=== PATIENT | male | born 1990 | race Caucasian/White ===

== ENCOUNTER 2020-05-15 12:49 | Emergency (ER) | payer OTHER, SELFPAY ==
[2020-05-15 13:02] VITALS: BP 105/82; PULSE 110; RESP 18; TEMP 37.3; O2SAT 97; BMI 26.2
--- NOTE | 2020-05-15 13:40 | PC.NURSE ---
A&OX3, SPEAKS IN FULL SENTENCES, DENIES DIFFICULTY BREATHING, AWAITING EXAM
[2020-05-15] MEDS: Loratadine 10 MG TABLET PO (14:03)
[2020-05-15] MEDS: Famotidine 20 MG TABLET PO (14:03)
[2020-05-15] MEDS: predniSONE 20 MG TABLET 60 MG PO (14:03)
--- NOTE | 2020-05-15 14:11 | ED_ITS ---
HPI - Allergic Reaction General Chief complaint: Allergic Reaction Stated complaint: allergic reaction,hives Time Seen by Provider: 05/15/20 13:57 History of Present Illness HPI narrative: Patient complains of hives coming and going for several days as well as some lower lip swelling, it did improve after he went to urgent care several days ago and was given prednisone and antihistamine and started to get better, but now the hives are back, no shortness of breath no difficulty breathi ng no swelling in the throat the tongue or inside the mouth Related Data Previous Rx's Medication Instructions Recorded cetirizine 10 mg PO DAILY PRN #14 cap 05/15/20 diphenhydramine HCl [Benadryl] 50 mg PO BEDTIME PRN #20 cap 05/15/20 famotidine [Pepcid] 20 mg PO BID PRN #30 tab 05/15/20 prednisone 10 mg PO DAILY 8 Days #8 tab 05/15/20 Allergies Allergy/AdvReac Type Severity Reaction Status Date / Time No Known Allergies Allergy Verified 05/15/20 13:04 Review of Systems Review of Systems: Positive for ordered Sophia a rash and lower lip swelling No dizziness no weakness no confusion no fainting no shortness of breath no difficulty breathing no swelling of the tongue or the throat, no chest pain no abdominal pain no vomiting Yes all other systems are reviewed and are negative PMFSH Past Medical History Source: nursing notes reviewed Social History Social History Advance Directives: No Advance Directives Information Provided: Yes Physical Exam Vital Signs: Vital Signs: Last Vital Signs Temp 99.1 F 05/15/20 13:02 Pulse 110 H 05/15/20 13:02 Resp 18 05/15/20 13:02 BP 105/82 05/15/20 13:02 Pulse Ox 97 05/15/20 13:02 Body Mass Index 26.2 Patient is comfortable relaxed and cooperative no acute distress, A&O x3 There is some swelling of the lower lip but it is a not impair breathing or swal lowing The pharynx is clear with no swelling of tongue or pharynx, well-hydrated, voice is normal, lip is breathing easily and swallowing easily The neck is supple without lymphadenopathy The chest is clear to auscultation with full symmetric equal breath sounds bilaterally The heart rate and rhythm regular no murmur Abdomen no tender The skin there is diffuse ordered cardial rash, no evidence of cellulitis or ulceration Neuro no focal deficit Course Course Course Narrative: Comfortable patient in no distress is treated for ordered Sophia a with a longer tapering caught course of steroids and antihistamine and Pepcid Discharge Plan Discharge Clinical Impression: Urticaria Patient Disposition: Home, Self-Care Additional Instructions: We are treating for probable allergic reaction causing hives There was no sign of any dangerous condition at this time Return any time any worse condition or any concerns Follow with primary doctor The correct prednisone prescription was a tapering dose of prednisone for 8 days total with 60 mg for 2 days followed by 40 for 2 days followed by 20 mg for 2 days followed by 10 mg for 2 days Prescriptions: New cetirizine 10 mg capsule 10 mg PO DAILY PRN (Reason: allergy symptoms) Qty: 14 RF: 0 diphenhydramine HCl [Benadryl] 25 mg capsule 50 mg PO BEDTIME PRN (Reason: allergy symptoms) Qty: 20 RF: 0 famotidine [Pepcid] 20 mg tablet 20 mg PO BID PRN (Reason: As needed for allergy symptoms) Qty: 30 RF: 0 prednisone 10 mg tablet 10 mg PO DAILY 8 Days Qty: 8 RF: 0 Interventions: ED Discharge Assessment Last Done: 05/15/20 14:32 Discharge Date/Time: 05/15/20 14:32
== END 2020-05-15 14:32 | disposition home or self-care (01) ==
PROVIDERS: Emergency Provider Emergency Medicine; PCP Internal Medicine
DX: L50.9 Urticaria, unspecified (principal)
CPT/HCPCS: 99283

== ENCOUNTER 2020-07-15 09:14 | Outpatient (REF) | payer OTHER, SELFPAY ==
[2020-07-15 11:04] LABS: MANUAL DIFF FLAG NO
[2020-07-15 11:21] LABS: Basophils Percent Auto 0.5 % (0-2); Eosinophils Absolute Auto 0.3 X10*3/uL (0.0-0.4); Eosinophils Percent Auto 4.7 % (0-4); Hematocrit 45.1 % (42-52); Hemoglobin 14.5 g/dl (14.0-18.0); Imm Gran Abs Auto 0.03 X10*3/uL (0.00-0.03); Imm Gran Pct Auto 0.5 % (0.0-0.4); Lymphocytes Absolute Auto 1.3 X10*3/uL (1.2-4.9); Lymphocytes Percent Auto 20.3 % (20-40); Mean Corpuscular HGB Conc 32.2 g/dl (31.0-36.0); Mean Corpuscular Hemoglobin 30.7 pg (27.0-33.0); Mean Corpuscular Volume 95.3 fL (80-98); Mean Platelet Volume 11.2 fL (9.4-12.4); Monocytes Absolute Auto 0.4 X10*3/uL (0.1-1.2); Monocytes Percent Auto 5.5 % (2-11); Neutrophils Absolute Auto 4.5 X10*3/uL (2.0-8.3); Neutrophils Percent Auto 68.5 % (45-73); Platelet Count 184 X10*3/uL (160-400); Red Blood Count 4.73 X10*6/uL (4.60-5.80); Red Cell Distribution Width 12.1 % (11.0-16.0); White Blood Count 6.6 X10*3/uL (4.8-10.8)
[2020-07-15 12:05] LABS: Alanine Aminotransferase 10 U/L (0-40); Albumin Level 4.3 g/dL (3.5-5.0); Alkaline Phosphatase 111 U/L (39-117); Anion Gap 11 (12-20); Aspartate Amino Transferase 15 U/L (5-37); Blood Urea Nitrogen 10 mg/dL (9-16); C Reactive Protein 0.28 mg/dL (< or = 0.50); Carbon Dioxide 29 mmol/L (22-29); Chloride 103 mmol/L (96-108); Cholesterol 134 mg/dL; Estimated Glomerular Filt Rate > 60; Glucose Fasting 94 mg/dL (60-99); HDL Cholesterol 31 mg/dL; LDL Cholesterol Calculated 90 mg/dl; Sodium 139 mmol/L (135-145); Total Protein 6.8 g/dL (6.5-8.0); Triglycerides 65 mg/dL
== END 2020-07-15 09:15 | disposition home or self-care (01) ==
LOC: HO.HMGCLDS 09:14
PROVIDERS: PCP Internal Medicine; Visit Provider Internal Medicine
DX: Z00.01 Encounter for general adult medical examination with abnormal findings (principal); L50.1 Idiopathic urticaria
CPT/HCPCS: 36415; 80053; 80061; 85025; 86140

== ENCOUNTER 2022-06-15 08:57 | Outpatient (REF) | payer OTHER, SELFPAY ==
[2022-06-15 11:24] LABS: MANUAL DIFF FLAG NO
[2022-06-15 11:39] LABS: Basophils Absolute Auto 0.1 X10*3/uL (0.0-0.2); Basophils Percent Auto 0.8 % (0-2); Eosinophils Absolute Auto 0.4 X10*3/uL (0.0-0.4); Hematocrit 45.5 % (42.0-52.0); Hemoglobin 15.2 g/dl (14.0-18.0); Imm Gran Abs Auto 0.07 X10*3/uL (0.00-0.03); Imm Gran Pct Auto 0.8 % (0.0-0.4); Lymphocytes Absolute Auto 1.7 X10*3/uL (1.2-4.9); Lymphocytes Percent Auto 20.8 % (20-40); Mean Corpuscular HGB Conc 33.4 g/dl (31.0-36.0); Mean Corpuscular Hemoglobin 31.7 pg (27.0-33.0); Mean Platelet Volume 10.8 fL (9.4-12.4); Monocytes Absolute Auto 0.5 X10*3/uL (0.1-1.2); Monocytes Percent Auto 5.8 % (2-11); Neutrophils Absolute Auto 5.5 x10*3/uL (2.0-8.3); Neutrophils Percent Auto 66.8 % (45-73); Platelet Count 178 X10*3/uL (160-400); Red Blood Count 4.79 X10*6/uL (4.60-5.80); Red Cell Distribution Width 11.8 % (11.0-16.0); White Blood Count 8.3 X10*3/uL (4.8-10.8)
[2022-06-15 12:25] LABS: Alanine Aminotransferase 22 U/L (0-40); Albumin Level 3.9 g/dL (3.5-5.0); Alkaline Phosphatase 100 U/L (39-117); Aspartate Amino Transferase 21 U/L (5-37); Bilirubin Direct 0.3 mg/dL (0.0-0.5); Bilirubin Total 1.1 mg/dL (0.0-1.0); Cholesterol 131 mg/dL; Glucose Fasting 93 mg/dL (60-99); HDL Cholesterol 31 mg/dL; LDL Cholesterol Calculated 80 mg/dl; Total Protein 6.1 g/dL (6.5-8.0); Triglycerides 100 mg/dL
== END 2022-06-15 08:58 | disposition home or self-care (01) ==
LOC: HO.HMGCLDS 08:57
PROVIDERS: PCP Internal Medicine; Visit Provider Internal Medicine
DX: Z00.01 Encounter for general adult medical examination with abnormal findings (principal); L50.1 Idiopathic urticaria; R17 Unspecified jaundice
CPT/HCPCS: 36415; 80061; 80076; 82947; 85025

== ENCOUNTER 2023-06-22 07:58 | Outpatient (AMB) | payer OTHER, SELFPAY ==
--- NOTE | 2023-06-22 08:10 | MHC.PC.OV ---
Vital Signs 06/22/23 08:12 Height 6 ft 2 in Weight 238 lb BMI 30.6 BP 110/60 Blood Pressure Location Lt brachial Position Sitting Pulse 78 Pulse Source Pulse Oximeter Pulse Oximetry (%) 99 Oxygen Delivery Method Room Air Intake Visit Reasons: PE Intake Note: Pt is here today for his PE Allergies No Known Allergies Allergy (Verified 06/22/23 08:24) Medication List - Last Reconciled 06/22/23 by Christina Lanza MD No Known Home Meds Tobacco use date assessed: 06/22/23 Dental Screening Dental Screen Date: 06/22/23 Did you have a dental visit in the last 12 months?: No Was dental information given to patient?: No HPI PE HPI Details 32-year-old male here today for his physical exam. He has been feeling well, no complaints at present time. He has had his COVID vaccines in the past but has not yet had a booster, did not get his flu shot for last year season and has not yet had his Tdap. [facility] Medical History Elevated bilirubin Encounter for general adult medical examination with abnormal findings Chronic idiopathic urticaria Surgical History No pertinent past surgical history Family History Maternal Grandfather Pancreatic cancer Social History Housing: House Alcohol intake: current Patient Tobacco Use Status: Never used Tobacco e-Cigarette/Vaping Use: Currently Using service: No Current occupational status: employed Cognitive needs: No Hearing needs: No Vision needs: No Questionnaire PHQ-9 Over the last 2 weeks, how often have you been bothered by any of the following problems? 1. Little interest or pleasure in doing things: not at all 2. Feeling down, depressed, or hopeless: not at all 3. Trouble falling or staying asleep, or sleeping too much: not at all 4. Feeling tired or having little energy: not at all 5. Poor appetite or overeating: not at all 6. Feeling bad about yourself - or that you are a failure or have let yourself or your family down: not at all 7. Trouble concentrating on things, such as reading the newspaper or watching television: not at all 8. Moving or speaking so slowly that other people could have noticed. Or the opposite - being so fidgety or restless that you have been moving around a lot more than usual: not at all 9. Thoughts that you would be better off or of hurting yourself in some way: not at all Total score: 0 Depression Screening Interpretation: Negative Depression Screening Done: Yes 41760 - PHQ-9 Billing: Yes Source: Developed by Drs. Misbah Llanes, Shivani Lomeli, Tahir Solis and colleagues, with an educational emilio from [employer]. Thrive Questionnaire Date Thrive assessed: 06/22/23 I am a: Patient What is your living situation today?: I have a steady place to live Within the past 12 months, did the food you bought not last and you didn't have the money to get more?: Never true Within the past 12 months, did you worry whether your food would run out before you got money to buy more?: Never true Do you have trouble paying for medicines?: No Do you have trouble getting transportation to medical appointments?: No Do you have trouble paying your heating and electricity bill?: No Do you have trouble taking care of your child, family member or friend?: No Do you have trouble with day-to-day activities such as bathing, preparing meals, shopping, managing finances, etc.?: No Are you currently unemployed and looking for a job?: No Are you interested in more education?: No THRIVE Score: 0 AUDIT C Alcohol Use Questionnaire (AUDIT-C) 1. How often do you have a drink containing alcohol?: Monthly or less 2. How many drinks containing alcohol do you have on a typical day when you are drinking?: 1 or 2 3. How often do you have six or more drinks on one occasion?: Never Total Score: 1 MADIHA-7 AMB Questionnaire MADIHA-7 Date MADIHA - 7 assessed: 06/22/23 Feeling nervous, anxious, or on edge: 0 = Not at all Not being able to stop or control worryin = Not at all Worrying too much about different things: 0 = Not at all Trouble relaxin = Not at all Being so restless that it is hard to sit still: 0 = Not at all Becoming easily annoyed or irritable: 0 = Not at all Feeling afraid as if something awful might happen: 0 = Not at all Total MADIHA-7 score (0-4 normal; 5-9 mild; 10-14 moderate; 15-21 severe): 0 Source: Developed by Drs. Misbah Llanes, Shivani Lomeli, Tahir Solis and colleagues, with an educational emilio from [employer]. MADIHA-7 Assessment Billing MADIHA-7 Assessment Tool: MADIHA-7 Assessment 45432 Review of Systems Const Denies anorexia, Denies body aches, Denies chills, Denies fatigue, Denies fever(s), Denies headache(s), Denies lethargy, Denies malaise and Denies weakness Eyes Denies change in vision, Denies eye discharge and Denies itchy eyes ENT Denies dizziness, Denies headache(s), Denies nasal congestion, Denies nasal discharge and Denies sore throat Card Denies chest pain, Denies lightheadedness, Denies palpitations and Denies dyspnea Resp Denies chest congestion, Denies cough, Denies dyspnea and Denies wheezing GI Denies abdominal pain, Denies change in bowel habits and Denies heartburn Denies dysuria, Denies urinary frequency and Denies urinary urgency Musc Reports as per HPI, Denies myalgias, Denies arthralgias and Denies muscle weakness Skin/Breast Reports as per HPI, Denies dry skin, Denies alopecia, Denies lesions, Denies nail changes, Denies new lesions, Denies rash, Denies sores and Denies unusual bruising Neuro Denies dizziness, Denies headache(s) and Denies weakness Psych Reports as per HPI Endo Denies fatigue, Denies polydipsia, Denies polyuria and Denies palpitations Lex/Lymph Denies easy bruising Aller/Immun Denies itchy eyes, Denies seasonal rhinorrhea and Denies wheezing Physical exam (Primary Care) Vital Signs: Last Vital Signs Pulse 78 06/22/23 08:12 BP 110/60 06/22/23 08:12 Pulse Ox 99 06/22/23 08:12 Oxygen Delivery Method Room Air 06/22/23 08:12 BMI result Body Mass Index 30.6 Tobacco/Smoking Status: Tobacco use Status Tobacco use date assessed 06/22/23 06/22/23 08:14 Patient Tobacco Use Status Never used Tobacco 06/22/23 08:11 e-Cigarette/Vaping Use Currently Using 06/22/23 08:14 PHQ-9: PHQ-9 Score PHQ-9: Total score 0 06/22/23 08:29 Depression Screening Interpretation: Negative Thrive Assessment: Date of Thrive Assessment Date Thrive assessed 06/22/23 06/22/23 08:14 Const General: no acute distress Nutritional Appearance: obese Orientation/consciousness: patient oriented x3 HENMT Head: Yes normocephalic and Yes atraumatic Ears: external ears normal, TM's normal bilaterally and Abnormal EAC present excessive cerumen bilateral General nose exam: Normal external nose present and No nasal discharge present Mouth: Normal oral and palatal mucosa present, oropharynx normal and moist mucous membranes Eyes General: appearance normal, both eyes and all related structures Neck Neck: Yes full ROM, Yes no lymphadenopathy and Yes supple Thyroid: Thyroid normal (Nonpalpable) Chest Chest palpation & inspection: normal inspection of the chest Resp Effort & Inspection: normal respiratory effort and able to speak in complete sentences Auscultation: clear to auscultation bilaterally Cardio Rate: regular rate Rhythm: regular rhythm Heart sounds: S1 normal heart sound present and S2 normal heart sound present Bruits: no abdominal aortic bruits GI Palpation (GI): No Abdominal aortic bruit present, Soft to palpation, nontender, no guarding and no masses Auscultation: normal bowel sounds General: Yes no CVA tenderness Male General Exam: Yes normal external exam Back/Spine/Pelvis Back: no CVA tenderness and No back tenderness Skin General skin exam: no rashes or lesions noted Neuro General: patient oriented x3, gait normal, tone normal, moves all extremities, Normal light touch and pain sensation and no focal motor deficits Cognition (Neuro): normal cognition Gait exam (Neuro): Normal gait present Motor exam (neuro): 5/5 motor strength present throughout Extrem General: Yes normal to inspection, Yes full ROM and Yes no joint enlargement Psych Appearance: grossly normal and well kempt Mental Status: mental status grossly normal Speech and movement: Normal speech and movement present Affect: normal affect Attitude: cooperative Thought process: Normal thought process present Thought content: Normal thought content present Office Procedures Flu Questionnaire Does the patient have a severe egg allergy?: No Does the patient have severe life threatening allergies?: No Does the patient have a fever or illness today?: No Has the patient ever had Guillain-[place] Syndrome?: No Has the patient ever had any past reaction to a flu shot?: No Immunizations flu vacc [id number] 6mos up(PF) 60 mcg(15 mcgx4)/0.5 mL IM syringe Performing Provider: Christina Lanza MD Performing Location: 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 Recommended dental visit every 6 months and regular eye exams, at least every 2 years. . Instructed to do self-testicular exam to check for any mass. Reinforced importance of following healthy diet and getting regular exercise at least 30 minutes of cardio 3 to 4 times a week. Had COVID vaccines in the past but not interested in getting the booster, flu vaccine given, patient states he had Tdap in the past, does not know when. (2) Elevated bilirubin: Code(s): R17 - Unspecified jaundice Plan: Will repeat liver panel Orders: Orders Liver Panel Today R17 - Unspecified jaundice, Z00.01 - Encounter for general adult medical examination with abnormal findings, Z13.1 - Encounter for screening for diabetes mellitus, Z13.220 - Encounter for screening for lipoid disorders Glucose Fasting Today R17 - Unspecified jaundice, Z00.01 - Encounter for general adult medical examination with abnormal findings, Z13.1 - Encounter for screening for diabetes mellitus, Z13.220 - Encounter for screening for lipoid disorders Lipid Panel Today R17 - Unspecified jaundice, Z00.01 - Encounter for general adult medical examination with abnormal findings, Z13.1 - Encounter for screening for diabetes mellitus, Z13.220 - Encounter for screening for lipoid disorders Vitamin D 25-OH Total Today R17 - Unspecified jaundice, Z00.01 - Encounter for general adult medical examination with abnormal findings, Z13.1 - Encounter for screening for diabetes mellitus, Z13.220 - Encounter for screening for lipoid disorders Influenza [id number] Immunization Today Z23 - Encounter for immunization Coding Level of Care Code Est Pt Prev Care [id number]([id number]) Diagnoses Encounter for general adult medical examination with abnormal findings Z00.01 Elevated bilirubin R17 Additional Codes MADIHA-7 Assessment Billing - MADIHA-7 Assessment Tool: MADIHA-7 Assessment 29765 ([id number])
[2023-06-22 08:12] VITALS: BP 110/60; PULSE 78; O2SAT 99; BMI 30.6
== END 2023-06-22 08:40 | disposition home or self-care (01) ==
PROVIDERS: Visit Provider Internal Medicine
DX: Z00.00 Encounter for general adult medical examination without abnormal findings (principal); R17 Unspecified jaundice; Z23 Encounter for immunization
CPT/HCPCS: 90471; 90686; 99395

== ENCOUNTER 2023-06-22 08:41 | Outpatient (REF) | payer OTHER, SELFPAY ==
[2023-06-22 12:30] LABS: Alanine Aminotransferase 39 U/L (0-40); Alkaline Phosphatase 91 U/L (39-117); Aspartate Amino Transferase 28 U/L (5-37); Bilirubin Direct 0.3 mg/dL (0.0-0.5); Bilirubin Total 0.9 mg/dL (0.0-1.0); Cholesterol 134 mg/dL (<200); Glucose Fasting 99 mg/dL (60-99); HDL Cholesterol 33 mg/dL (>40); LDL Cholesterol Calculated 83 mg/dL (<100); Total Protein 6.5 g/dL (6.5-8.0); Triglycerides 90 mg/dL (<150)
[2023-06-22 12:35] LABS: Vitamin D 25-OH Total 24.6 ng/mL (>30)
== END 2023-06-22 08:42 | disposition home or self-care (01) ==
LOC: HO.HMGCLDS 08:41
PROVIDERS: PCP Internal Medicine; Visit Provider Internal Medicine
DX: Z00.01 Encounter for general adult medical examination with abnormal findings (principal); Z13.220 Encounter for screening for lipoid disorders; Z13.1 Encounter for screening for diabetes mellitus; R17 Unspecified jaundice
CPT/HCPCS: 36415; 80061; 80076; 82306; 82947

== ENCOUNTER 2024-07-02 08:28 | Outpatient (AMB) | payer OTHER, SELFPAY ==
--- NOTE | 2024-07-02 08:39 | MHC.PC.OV ---
Vital Signs 07/02/24 08:42 Height 6 ft 2 in Weight 224 lb BMI 28.8 BP 94/64 Blood Pressure Location Rt brachial Position Sitting Respiration 16 Pulse 66 Pulse Source Pulse Oximeter Temp 98.2 F Temp Source Oral Pulse Oximetry (%) 98 Oxygen Delivery Method Room Air Intake Visit Reasons: PE Intake Note: Pt is here today for his PE Allergies No Known Allergies Allergy (Verified 07/02/24 09:15) Medication List - Last Reconciled 07/02/24 by Christina Lanza MD No Known Home Meds Tobacco use date assessed: 07/02/24 Dental Screening Dental Screen Date: 07/02/24 Did you have a dental visit in the last 12 months?: No Did you have a dental problem in the last 6 months where you did not have access to dental care?: No Was dental information given to patient?: Patient has dentist HPI PE HPI Details 33-year-old male here today for physical exam. He has been feeling well, with no complaints at present time. Previous labs showed low good cholesterol levels and low vitamin-D levels as well. Currently not taking any supplements or multivitamins. Patient states that he stays active at work walks a lot but no regular exercise. [facility] Medical History (Updated 07/02/24 @ 09:17 by Christina Lanza MD) Vitamin D deficiency Low HDL (under 40) Elevated bilirubin Encounter for general adult medical examination with abnormal findings Chronic idiopathic urticaria Surgical History No pertinent past surgical history Family History Maternal Grandfather Pancreatic cancer Social History Housing: House Alcohol intake: current Patient Tobacco Use Status: Never used Tobacco e-Cigarette/Vaping Use: Currently Using service: No Current occupational status: employed Cognitive needs: No Hearing needs: No Vision needs: No Questionnaire PHQ-9 Over the last 2 weeks, how often have you been bothered by any of the following problems? 1. Little interest or pleasure in doing things: not at all 2. Feeling down, depressed, or hopeless: not at all 3. Trouble falling or staying asleep, or sleeping too much: not at all 4. Feeling tired or having little energy: not at all 5. Poor appetite or overeating: not at all 6. Feeling bad about yourself - or that you are a failure or have let yourself or your family down: not at all 7. Trouble concentrating on things, such as reading the newspaper or watching television: not at all 8. Moving or speaking so slowly that other people could have noticed. Or the opposite - being so fidgety or restless that you have been moving around a lot more than usual: not at all 9. Thoughts that you would be better off or of hurting yourself in some way: not at all Total score: 0 Depression Screening Interpretation: Negative Depression Screening Done: Yes 90985 - PHQ-9 Billing: Yes Source: Developed by Drs. Misbah Llanes, Shivani Lomeli, Tahir Solis and colleagues, with an educational emilio from [employer]. Thrive Questionnaire Date Thrive assessed: 07/02/24 I am a: Patient What is your living situation today?: I have a steady place to live Within the past 12 months, did the food you bought not last and you didn't have the money to get more?: Never true Within the past 12 months, did you worry whether your food would run out before you got money to buy more?: Never true Do you have trouble paying for medicines?: No Do you have trouble getting transportation to medical appointments?: No Do you have trouble paying your heating and electricity bill?: No Do you have trouble taking care of your child, family member or friend?: No Do you have trouble with day-to-day activities such as bathing, preparing meals, shopping, managing finances, etc.?: No Are you currently unemployed and looking for a job?: I choose not to answer this question Are you interested in more education?: I choose not to answer this question Please select the resources that you would like help with: None Currently or been in a relationship where the following occur: No concerns reported THRIVE Score: 0 AUDIT C Alcohol Use Questionnaire (AUDIT-C) 1. How often do you have a drink containing alcohol?: 2-3 times a week 2. How many drinks containing alcohol do you have on a typical day when you are drinking?: 3 or 4 3. How often do you have six or more drinks on one occasion?: Less than monthly Total Score: 5 Score Reviewed/Action Taken: Yes (Advised to cut back on alcohol intake) MADIHA-7 AMB Questionnaire MADIHA-7 Date MADIHA - 7 assessed: 07/02/24 Feeling nervous, anxious, or on edge: 0 = Not at all Not being able to stop or control worryin = Not at all Worrying too much about different things: 0 = Not at all Trouble relaxin = More than half the days Being so restless that it is hard to sit still: 0 = Not at all Becoming easily annoyed or irritable: 1 = Several days Feeling afraid as if something awful might happen: 0 = Not at all Total MADIHA-7 score (0-4 normal; 5-9 mild; 10-14 moderate; 15-21 severe): 3 Source: Developed by Drs. Misbah Llanes, Shivani Lomeli, Tahir Solis and colleagues, with an educational emilio from [employer]. MADIHA-7 Assessment Billing MADIHA-7 Assessment Tool: MADIHA-7 Assessment 27172 Review of Systems Const Denies anorexia, Denies body aches, Denies chills, Denies fatigue, Denies fever(s), Denies headache(s), Denies lethargy, Denies malaise and Denies weakness Eyes Denies change in vision ENT Denies dizziness, Denies headache(s), Denies nasal congestion, Denies nasal discharge and Denies sore throat Card Denies chest pain, Denies lightheadedness, Denies palpitations and Denies dyspnea Resp Denies chest congestion, Denies cough, Denies dyspnea and Denies wheezing GI Denies abdominal pain, Denies change in bowel habits and Denies heartburn Denies dysuria, Denies urinary frequency and Denies urinary urgency Musc Reports as per HPI, Denies myalgias, Denies arthralgias and Denies muscle weakness Skin/Breast Reports as per HPI, Denies dry skin, Denies alopecia, Denies lesions, Denies nail changes, Denies new lesions, Denies rash, Denies sores and Denies unusual bruising Neuro Denies dizziness, Denies headache(s) and Denies weakness Psych Reports as per HPI Endo Denies fatigue, Denies polydipsia, Denies polyuria and Denies palpitations Lex/Lymph Denies easy bruising Aller/Immun Denies seasonal rhinorrhea and Denies wheezing Physical exam (Primary Care) Vital Signs: Last Vital Signs Temp 98.2 F 07/02/24 08:42 Pulse 66 07/02/24 08:42 Resp 16 07/02/24 08:42 BP 94/64 07/02/24 08:42 Pulse Ox 98 07/02/24 08:42 Oxygen Delivery Method Room Air 07/02/24 08:42 BMI result Body Mass Index 28.8 Tobacco/Smoking Status: Tobacco use Status Tobacco use date assessed 07/02/24 07/02/24 08:45 Patient Tobacco Use Status Never used Tobacco 07/02/24 08:40 e-Cigarette/Vaping Use Currently Using 07/02/24 08:40 PHQ-9: PHQ-9 Score PHQ-9: Total score 0 07/02/24 09:15 Depression Screening Interpretation: Negative Thrive Assessment: Date of Thrive Assessment Date Thrive assessed 07/02/24 07/02/24 08:40 Currently or been in a relationship where the following occur: No concerns reported Const General: no acute distress Orientation/consciousness: patient oriented x3 HENMT Ears: external ears normal, TM's normal bilaterally and Abnormal EAC present excessive cerumen bilateral General nose exam: Normal external nose present and No nasal discharge present Mouth: Normal oral and palatal mucosa present, oropharynx normal and moist mucous membranes Eyes General: appearance normal, both eyes and all related structures Neck Neck: Yes full ROM, Yes no lymphadenopathy and Yes supple Thyroid: Thyroid normal (Nonpalpable) Chest Chest palpation & inspection: normal inspection of the chest Resp Effort & Inspection: normal respiratory effort and able to speak in complete sentences Auscultation: clear to auscultation bilaterally Cardio Rate: regular rate Rhythm: regular rhythm Heart sounds: S1 normal heart sound present and S2 normal heart sound present Bruits: no abdominal aortic bruits GI Palpation (GI): No Abdominal aortic bruit present, Soft to palpation, nontender, no guarding and no masses Auscultation: normal bowel sounds General: Yes no CVA tenderness Male General Exam: Yes normal external exam Back/Spine/Pelvis Back: no CVA tenderness and No back tenderness Skin General skin exam: no rashes or lesions noted Neuro General: patient oriented x3, gait normal, tone normal, moves all extremities, Normal light touch and pain sensation and no focal motor deficits Cognition (Neuro): normal cognition Gait exam (Neuro): Normal gait present Motor exam (neuro): 5/5 motor strength present throughout Extrem General: Yes normal to inspection, Yes full ROM and Yes no joint enlargement Psych Appearance: grossly normal and well kempt Mental Status: mental status grossly normal Speech and movement: Normal speech and movement present Affect: normal affect Attitude: cooperative Thought process: Normal thought process present Thought content: Normal thought content present Coding Level of Care Code Est Pt Prev Care 18-39y(46715) Diagnoses Encounter for general adult medical examination with abnormal findings Z00.01 Vitamin D deficiency E55.9 Low HDL (under 40) E78.6 Additional Codes MADIHA-7 Assessment Billing - MADIHA-7 Assessment Tool: MADIHA-7 Assessment 46026 ([id number]) PHQ-9 - 59657 - PHQ-9 Billing: Yes ([id number]) Assessment & Plan Assessment & Plan (1) Encounter for general adult medical examination with abnormal findings: Code(s): Z00.01 - Encounter for general adult medical examination with abnormal findings Category: Medical Plan: Will check fasting lipids, liver enzymes, fasting glucose level and vitamin-D. Recommended dental visit every 6 months and regular eye exams, at least every 2 years. Stressed importance of following a healthy diet and getting regular exercise at least 15 minutes of cardio daily to help improve good cholesterol levels Instructed to do self-testicular exam check for any mass. Declined getting flu vaccine on this visit does not want to get COVID booster but Tdap given today (2) Vitamin D deficiency: Code(s): E55.9 - Vitamin D deficiency, unspecified Category: Medical Plan: Will check vitamin-D level (3) Low HDL (under 40): Code(s): E78.6 - Lipoprotein deficiency Category: Medical Plan: Fasting lipid panel ordered, advised to do regular cardio exercise at least 15 minutes daily. Orders: Orders Vitamin D 25-OH Total Today E55.9 - Vitamin D deficiency, unspecified, E78.6 - Lipoprotein deficiency, Z00.01 - Encounter for general adult medical examination with abnormal findings, Z13.1 - Encounter for screening for diabetes mellitus, Z13.220 - Encounter for screening for lipoid disorders Glucose Fasting Today E55.9 - Vitamin D deficiency, unspecified, E78.6 - Lipoprotein deficiency, Z00.01 - Encounter for general adult medical examination with abnormal findings, Z13.1 - Encounter for screening for diabetes mellitus, Z13.220 - Encounter for screening for lipoid disorders Lipid Panel Today E55.9 - Vitamin D deficiency, unspecified, E78.6 - Lipoprotein deficiency, Z00.01 - Encounter for general adult medical examination with abnormal findings, Z13.1 - Encounter for screening for diabetes mellitus, Z13.220 - Encounter for screening for lipoid disorders Alanine Aminotransferase Today E55.9 - Vitamin D deficiency, unspecified, E78.6 - Lipoprotein deficiency, Z00.01 - Encounter for general adult medical examination with abnormal findings, Z13.1 - Encounter for screening for diabetes mellitus, Z13.220 - Encounter for screening for lipoid disorders Aspartate Amino Transferase Today E55.9 - Vitamin D deficiency, unspecified, E78.6 - Lipoprotein deficiency, Z00.01 - Encounter for general adult medical examination with abnormal findings, Z13.1 - Encounter for screening for diabetes mellitus, Z13.220 - Encounter for screening for lipoid disorders
[2024-07-02 08:42] VITALS: BP 94/64; PULSE 66; RESP 16; TEMP 36.8; O2SAT 98; BMI 28.8
--- OUTSIDE RECORDS SUMMARY | 2024-07-02 08:49 | XMS_ITS | Encounter Summary ---
Author Organization [facility] Address [address] [place] [id number] Phone Care Team Providers Care Gas Main Fitter Name Role Phone Gurpreet Robertson MD Primary Care Provider Encounter Details Date Type Department Care Team (Late st Contact Info) Description 12/19/2011 Documentation [facility] [place] [address] [place], [place] [id number] Family Medicine, Physician [address] [place], [place] [id number] Social History Tobacco Use Types Packs/Day Years Used Date Smoking Tobacco: Never Assessed Sex and Gender Information Value Date Recorded Sex Assigned at Not on file Legal Sex Male 4:45 PM EDT Gender Identity Not on file Sexual Orientation Not on file documented as of this encounter Plan of Treatment Not on file documented as of this encounter Visit Diagnoses Not on filedocumented in this encounter Care Teams Gas Main Fitter Relationship Specialty Start Date End Date Gurpreet Robertson MD [address] [place] [address] [place] [address] PCP - General 12/23/16 11/23/22 documented as of this encounter
--- OUTSIDE RECORDS SUMMARY | 2024-07-02 08:49 | XMS_ITS | Clinical Summary ---
Author Organization [facility] Address [address] [place] [address] Phone Care Team Providers Care Health And Safety Inspector Name Role Phone Unavailable Primary Care Provider Unavailabl e Immunizations Immunization Administration Dates Next Due DTP 12/28/1995, 3,07/22/1991,05/20,03/18/1991 HPV, Quadrivalent 12/18/2011 Hep B, ped/adol 08/09/1996,02/01/1996,12/28/1995 Hib (PRP-T) 04/07/1992, 2,05/20/1991,03/18 MMR 12/28/1995,04/07/1992 Meningococcal Conj (Menactra) MCV4P 03/30/2007 OPV 12/28/1995, 3,05/20/1991,03/18 Td (adult) (MBL), 2 Lf tetan us toxoid, PF, adsorbed 02/15/2002 Tdap 03/30/2007 Family History Relation Name Status Comments Father Alive Father: Alive a nd well Maternal Grandfather Materna l grandfather: Diabetes mellitus Mother Mother: migrain e Paternal Grandfather Paterna l grandfather: Hypertension Social History Tobacco Use Types Packs/Day Years Used Date Smoking Tobacco: Never Assessed Sex and Gender Information Value Date Recorded Sex Assigned at Not on file Legal Sex Male 4:45 PM EDT Gender Identity Not on file Sexual Orientation Not on file Last Filed Vital Signs Vital Sign Reading Time Taken Comments Blood Pressure 116/74 12/18/2011 12:00 AM EDT Pulse 80 12/18/2011 12:00 AM EDT Temperature 36.7 ??C (98.1 ??F) 12/18/2011 12:00 AM E DT Respiratory Rate - - Oxygen Saturation - - Inhaled Oxygen Concentration - - Weight 87.5 kg (193 lb) 12/18/2011 12:00 AM EDT Height 187.5 cm (6' 1.8 ) 12/18/2011 12:00 AM ED T Body Mass Index 24.91 12/18/2011 12:00 AM EDT Plan of Treatment Health Maintenance Due Date Last Done Comments Varicella Vaccines (1 of 2 - 13+ 2-dose series) 12/26/2003 Consider Men B Vaccine (1 of 2 - Bexsero 2-dose series) 2006 HPV Vaccines (2 - Male 3-dose series) 01/15/2012 12/18/2011 DTaP,Tdap,and Td Vaccines (7 - Td or Tdap) 03/30/2017 03/30/2007, 02/15/2002, 12/28/1995, Additional history exists Influenza Vaccines (#1) 2023 COVID-19 Vaccine ( season) 2024 HIB Vaccines Completed 04/07/1992, 01/1992, 05/20/1991, Additional history exists IPV Vaccines Completed 12/28/1995, 07/13, 05/20/1991, Additional history exists MMR Vaccines Completed 12/28/1995, 04/07/1992 Hepatitis B Vaccines Completed 08/09/1996, 02/01/1996, 12/28/1995 Meningococcal Vaccine Completed 03/30/2007 Hepatitis A Vaccines Aged Out No long er eligible based on patient's age to complete this topic Men B Vaccine Aged Out No longer elig ible based on patient's age to complete this topic Pneumococcal Vaccine Aged Out No long er eligible based on patient's age to complete this topic
--- OUTSIDE RECORDS SUMMARY | 2024-07-02 08:49 | XMS_ITS | Encounter Summary ---
Author Organization [facility] Address [address] [place] [address] Phone Care Team Providers Care Materials Management Clerk Name Role Phone Gurpreet Robertson MD Primary Care Provider [phone] Encounter Details Date Type Department Care Team (Late st Contact Info) Description 09/25/2012 Documentation [facility] [place] [address] [place], [place] [phone] Family Medicine, Physician [address] [place], [place] [address] Social History Tobacco Use Types Packs/Day Years [...] on filedocumented in this encounter Care Teams Materials Management Clerk Relationship Specialty Start Date End Date Gurpreet Robertson MD [address] [place] [address] [place] [id number] PCP - General 12/23/16 11/23/22 documented as of this encounter
--- OUTSIDE RECORDS SUMMARY | 2024-07-02 08:49 | XMS_ITS | Encounter Summary ---
Author Organization [facility] Address [address] [place] [address] Care Team Providers Care Timber Deadener Name Role Phone Unavailable Primary Care Provider Unavailabl e Encounter Details Date Type Department Care Team (Late st Contact Info) Description 11/13/2019 Lab Requisition [facility] [address] [place] [address] Beto Gaffney PA-C [address] [place] [address] Social History Tobacco Use Types Packs/Day Years Used Date Smoking Tobacco: Never Assessed Sex and Gender Information Value Date Recorded Sex Assigned at Not on file Gender Identity Not on file Sexual Orientation Not on file documented as of this encounter Plan of Treatment Not on file documented as of this encounter Procedures Procedure Name Priority Date/Time Associated Diagnosis Comments SARS COV-2 RNA (COVID-19), QUAL Routine 11/13/2019 10:10 AM EDT documented in this encounter Results * SARS CoV-2 RNA (COVID-19), Qual (11/13/2019 10:10 AM EDT) SARS CoV 2 RNA, Qual Not Detected Not Detected 11/18/2019 12:29 AM EDT [facility] Comment: A Not Detected (negative) test result for this test means that SARS-CoV-2 RNA was not present in the specimen above the limit of detection. A negative result does not rule out the possibility of COVID-19 and should not be used as the sole basis for treatment or patient management decisions. ??If COVID-19 is still suspected, based on exposure history together with other clinical findings, re-testing should be considered in consultation with public health authorities. Laboratory test results should always be considered in the context of clinical observations and epidemiological data in making a final diagnosis and patient management decisions. ? Please review the 'Fact Sheets' and FDA authorized labeling available for health care providers and patients using the following websites: https://www.[employer]/home/Covid-19/HCP/ [facility]/fact-sheet https://www.[employer]/home/Covid-19/ Patients/[facility]T/fact-sheet.html This test has been authorized by the FDA under an Emergency Use Authorization (EUA) for use by authorized laboratories. ? Due to the current public health emergency, [facility] is receiving a high volume of samples from a wide variety of swabs and media for COVID-19 testing. In order to serve patients during this public health crisis, samples from appropriate clinical sources are being tested. Negative test results derived from specimens received in non-commercially manufactured viral collection and transport media, or in media and sample collection kits not yet authorized by FDA for COVID-19 testing should be cautiously evaluated and the patient potentially subjected to extra precautions such as additional clinical monitoring, including collection of an additional specimen. Methodology: ??Nucleic Acid Amplification Test (NAAT) includes PCR or TMA ? Additional information about COVID-19 can be found at the [facility] website: www.[employer]/Covid19 Test Performed at: [facility] [address] [place], [place] ??[id number] Edward Cedeno M.D., Ph.D.,Director of Laboratories Microbiology Nasopharyngeal swab / Unknown 11/13/2019 10:10 AM EDT 11/13/2019 10:10 AM EDT Narrative [facility] 11/18/2019 12:29 AM EDT Performed at [facility] License number [id number] Beto Gaffney PA-C MICROBIOLOGY - NERAL ORDERABLES Performing Organization Address City/State/[facility] Co de Phone Number [facility] documented in this encounter Visit Diagnoses Not on filedocumented in this encounter
--- OUTSIDE RECORDS SUMMARY | 2024-07-02 08:49 | XMS_ITS | Encounter Summary ---
Author Organization [facility] Address [address] [place] [address] Phone Care Team Providers Care Glass Technician Name Role Phone Gurpreet Robertson MD Primary Care Provider [phone] Encounter Details Date Type Department Care Team (Late st Contact Info) Description 12/29/2016 Conversion Encounter [facility] [address] [place] [address] Social History Tobacco Use Types Packs/Day Years [...] on filedocumented in this encounter Care Teams Glass Technician Relationship Specialty Start Date End Date Gurpreet Robertson MD [address] [place] [address] PCP - General 12/23/16 11/23/22 documented as of this encounter
--- OUTSIDE RECORDS SUMMARY | 2024-07-02 08:49 | XMS_ITS | Clinical Summary ---
Author Organization [facility] Address [address] [place] [address] Care Team Providers Care Staff Services Manager Name Role Phone Unavailable Primary Care Provider Unavailabl e Social History Tobacco Use Types Packs/Day Years Used Date Smoking Tobacco: Never Assessed Sex and Gender Information Value Date Recorded Sex Assigned at Not on file Gender Identity Not on file Sexual Orientation Not on file Plan of Treatment Health Maintenance Due Date Last Done Comments Hepatitis C Virus Screening 1990 HIV Screening 12/26/2003 DTaP/Tdap/Td Vaccines (1 - Tdap) 2009 Hepatitis B Vaccines (1 of 3 - 19+ 3-dose series) 2009 Influenza Vaccine 12/14/2023 COVID-19 Vaccine ( - 2023-2 5 season) 2024 HPV Vaccines Aged Out No longer eligi ble based on patient's age to complete this topic Pneumococcal Vaccine: Pediat alan (0-5 Years) and At-Risk Patients (6 to 49 Years) Aged Out No longer eligible b ased on patient's age to complete this topic
== END 2024-07-02 09:46 | disposition home or self-care (01) ==
PROVIDERS: PCP Internal Medicine; Visit Provider Internal Medicine
DX: Z00.01 Encounter for general adult medical examination with abnormal findings (principal); E55.9 Vitamin D deficiency, unspecified; E78.6 Lipoprotein deficiency; Z23 Encounter for immunization

== ENCOUNTER 2024-07-02 08:28 | Outpatient (REF) | payer OTHER, SELFPAY ==
--- OUTSIDE RECORDS SUMMARY | 2024-07-02 10:26 | XMS_ITS | Encounter Summary ---
Author Organization [facility] Address [address] [place] [address] Phone Care Team Providers Care Barrel Tester And Drainer Name Role Phone Gurpreet Robertson MD Primary Care Provider [phone] Encounter Details Date Type Department Care Team (Late st Contact Info) Description 12/29/2016 Conversion Encounter [facility] [address] [place] [address] Social History Tobacco Use Types Packs/Day Years [...] on filedocumented in this encounter Care Teams Barrel Tester And Drainer Relationship Specialty Start Date End Date Gurpreet Robertson MD [address] [place] [address] PCP - General 12/23/16 11/23/22 documented as of this encounter
--- OUTSIDE RECORDS SUMMARY | 2024-07-02 10:26 | XMS_ITS | Clinical Summary ---
Author Organization [facility] Address [address] [place] [address] Care Team Providers Care Music Sound Light Technician Name Role Phone Unavailable Primary Care Provider [...]
--- OUTSIDE RECORDS SUMMARY | 2024-07-02 10:26 | XMS_ITS | Encounter Summary ---
Author Organization [facility] Address [address] [place] [address] Care Team Providers Care Strategic Partnership Representative Name Role Phone Unavailable Primary Care Provider Unavailabl e Encounter Details Date Type Department Care Team (Late st Contact Info) Description 11/13/2019 Lab Requisition [facility] [address] [place] [address] Beto Gaffney PA-C [address] [place] [id number] Social History Tobacco Use Types Packs/Day Years [...] providers and patients using the following websites: https://www.[employer].Huaat/home/Covid-19/HCP/ Quest[facility]/fact-sheet https://www.[employer].Huaat/home/Covid-19/ Patients/QuestLDT/fact-sheet.html This test has been authorized by the FDA under an Emergency Use Authorization (EUA) for use by authorized laboratories. ? Due to the current public health emergency, [facility] is receiving a high volume of samples [...] about COVID-19 can be found at the [facility] website: www.[employer].Huaat/Covid19 Test Performed at: [facility] [address] [place], [place] ??[address] Edward Cedeno M.D., Ph.D.,Director of Laboratories Microbiology Nasopharyngeal swab / Unknown 11/13/2019 10:10 AM EDT 11/13/2019 10:10 AM EDT Narrative [facility] 11/18/2019 12:29 AM EDT Performed at [facility] License number [id number] Beto Gaffney PA-C MICROBIOLOGY - NERAL ORDERABLES Performing Organization Address City/State/[facility] Co de Phone Number AVA Miranda [facility]IL[facility] documented in this encounter Visit Diagnoses Not on filedocumented in this encounter
--- OUTSIDE RECORDS SUMMARY | 2024-07-02 10:26 | XMS_ITS | Clinical Summary ---
Author Organization [facility] Address [address] [place] [address] Phone Care Team Providers Care Tire Balancer Name Role Phone Unavailable Primary Care Provider [...] of 2 - 13+ 2-dose series) 12/26/2003 HPV Vaccines (2 - Male 3-dose series) [...]
--- OUTSIDE RECORDS SUMMARY | 2024-07-02 10:26 | XMS_ITS | Encounter Summary ---
Author Organization [facility] Address [address] [place] [address] Phone Care Team Providers Care Threading Machine Feeder Automatic Name Role Phone Gurpreet Robertson MD Primary Care Provider [phone] Encounter Details Date Type Department Care Team (Late st Contact Info) Description 09/25/2012 Documentation [facility] [place] Family Medicine [address] [place], [place] [id number] Family Medicine, Physician [address] [place], [place] [id number] Social History Tobacco Use Types Packs/Day Years [...] on filedocumented in this encounter Care Teams Threading Machine Feeder Automatic Relationship Specialty Start Date End Date Gurpreet Robertson MD [address] [place] [address] [place] [address] PCP - General 12/23/16 11/23/22 documented as of this encounter
--- OUTSIDE RECORDS SUMMARY | 2024-07-02 10:26 | XMS_ITS | Encounter Summary ---
Author Organization [facility] Address [address] [place] [phone] Phone Care Team Providers Care Note Taker Name Role Phone Gurpreet Robertson MD Primary Care Provider [phone] Encounter Details Date Type Department Care Team (Late st Contact Info) Description 12/19/2011 Documentation [facility] [place] [facility] [address] [place], [place] [id number] Family Medicine, Physician [address] [place], [place] [phone] Social History Tobacco Use Types Packs/Day Years [...] on filedocumented in this encounter Care Teams Note Taker Relationship Specialty Start Date End Date Gurpreet Robertson MD [address] [place] [address] [place] [address] PCP - General 12/23/16 11/23/22 documented as of this encounter
[2024-07-02 13:30] LABS: Alanine Aminotransferase 28 U/L (0-40); Aspartate Amino Transferase 27 U/L (5-37); Cholesterol 127 mg/dL (<200); Glucose Fasting 93 mg/dL (60-99); HDL Cholesterol 37 mg/dL (>40); LDL Cholesterol Calculated 75 mg/dL (<100); Triglycerides 78 mg/dL (<150)
[2024-07-02 13:49] LABS: Vitamin D 25-OH Total 22.1 ng/mL (>30)
== END 2024-07-02 08:29 | disposition home or self-care (01) ==
LOC: HO.HMGCLDS 08:28
PROVIDERS: PCP Internal Medicine; Visit Provider Internal Medicine
DX: Z00.01 Encounter for general adult medical examination with abnormal findings (principal); Z23 Encounter for immunization; E55.9 Vitamin D deficiency, unspecified; E78.6 Lipoprotein deficiency; Z13.220 Encounter for screening for lipoid disorders; Z13.1 Encounter for screening for diabetes mellitus
CPT/HCPCS: 36415; 80061; 82306; 82947; 84450; 84460; 90471; 90715; 96127; 99395